=== PATIENT | male | born 1995 | race Caucasian/White ===

== ENCOUNTER 2018-01-07 22:46 | Emergency (ER) | payer OTHER, SELFPAY ==
[2018-01-07 22:56] VITALS: BP 143/66; PULSE 82; RESP 18; TEMP 36.6; O2SAT 97; BMI 24.0
--- NOTE | 2018-01-08 00:56 | ED_ITS ---
HPI - Back Pain/Injury General Chief Complaint: Back Pain/Injury Stated Complaint: Rt Shoulder and Back Pain Time Seen by Provider: 01/08/18 00:55 Source: patient Mode of arrival: ambulatory Limitations: no limitations History of Present Illness HPI Narrative: Patient is a 22-year-old male who presents with back pain. It has been ongoing for the last 3 days. He was lifting a race car onto a trailer and he pulled his back. He says it goes all across his back not down his legs. No numbness or tingling in legs or arms. He has been using some ibuprofen not much relief. He has not used anything today. MD Complaint: back pain and back injury Duration: constant Location: thoracic spine Related Data Previous Rx's Medication Instructions Recorded cyclobenzaprine 5 mg PO TID PRN #10 tab 01/08/18 Allergies Allergy/AdvReac Type Severity Reaction Status Date / Time No Known Drug Allergies Allergy Verified 01/08/18 01:15 Review of Systems Review of Systems All systems reviewed & are unremarkable except as noted in HPI and below Constitutional Denies chills, Denies fever(s), Denies lethargy and Denies weakness Cardiovascular Denies dyspnea and Denies dyspnea on exertion Respiratory Denies cough, Denies dyspnea, Denies dyspnea on exertion and Denies wheezing Musculoskeletal Reports as per HPI and Reports back pain Integumentary/Breasts Denies pruritus, Denies erythema, Denies rash and Denies wounds Neurologic Denies weakness Allergic/Immunologic Denies wheezing [facility] Social History Smoking Status: Current every day smoker Exam Initial Vital Signs Initial Vital Signs: Vital Signs Temperature 97.9 F 01/07/18 22:56 Pulse Rate 82 01/07/18 22:56 Respiratory Rate 18 01/07/18 22:56 Blood Pressure 143/66 H 01/07/18 22:56 Pulse Oximetry 97 01/07/18 22:56 Const General: cooperative, healthy appearing and comfortable Neck Neck: full ROM and supple Chest Chest: normal inspection of the chest Resp Effort & Inspection: normal respiratory effort Cardio Rate: regular rate Rhythm: regular rhythm Back/Spine/Pelvis Thoracic/Lumbar Spine: paraspinal tenderness (More on the left side than right side about T8-T10) Skin General: no rashes or lesions noted, No jaundice and No petechiae Neuro General: alert, oriented x3, gait normal and no focal motor deficits Speech: speech normal Extrem General: normal to inspection, full ROM and no clubbing, cyanosis or edema Course Orders Ordered: Discontinued Medications Cyclobenzaprine HCl (Flexeril 10 Mg Prepack) 1 bottle MISC SEEINSTR ONE Stop: 01/08/18 01:04 Last Admin: 01/08/18 01:15 Dose: 1 bottle Ketorolac Tromethamine (Toradol) 60 mg IM NOW ONE Stop: 01/08/18 01:04 Last Admin: 01/08/18 01:10 Dose: 60 mg Vital Signs - 8 hr 01/07/18 22:56 01/08/18 01:31 Temperature 97.9 F Pulse Rate 82 77 Respiratory Rate 18 18 Blood Pressure 143/66 H 129/77 H Pulse Oximetry 97 97 Discharge Plan Departure Patient Disposition: Home, Self-Care Clinical Impression: Strain of muscle and tendon of back wall of thorax, initial encounter Discharge Date/Time: 01/08/18 01:32 Interventions: ED Discharge Assessment Last Done: 01/08/18 01:31 Instructions: Thoracic Back Pain Activity Restrictions/Additional Instructions: *You have been diagnosed with thoracic back pain *What to do: Increase activity as tolerated, heating pad 30 min at a time, light massage, recommend no heavy lifting *Continue to take medications as directed -Motrin 800 mg 3 times a day with food if needed for mild-to- moderate pain -Flexeril every 8hr if needed for muscle spasm, this does cause drowsiness 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
[2018-01-08] MEDS: KETOROLAC 60 MG/2 ML VIAL IM (01:10)
[2018-01-08] MEDS: CYCLOBENZAPRINE 10 MG PREPACK 1 BOTTLE MISC (01:15)
[2018-01-08 01:31] VITALS: BP 129/77; PULSE 77; RESP 18; O2SAT 97
== END 2018-01-08 01:32 | disposition home or self-care (01) ==
PROVIDERS: Emergency Provider Emergency Medicine
DX: S29.012A Strain of muscle and tendon of back wall of thorax, initial encounter (principal); T73.3XXA Exhaustion due to excessive exertion, initial encounter
CPT/HCPCS: 96372; 99282; 99283; J1885

== ENCOUNTER 2018-08-05 01:34 | Emergency (ER) | payer OTHER, SELFPAY ==
[2018-08-05 01:48] VITALS: BP 148/82; PULSE 89; RESP 12; TEMP 37.2; O2SAT 99; BMI 31.6
--- NOTE | 2018-08-05 01:51 | ED.CHESTPAIN ---
HPI - Chest Pain General Chief Complaint: Chest Pain Stated Complaint: chest pain feels fluttering in chest Time Seen by Provider: 08/05/18 01:36 Source: patient and family Mode of arrival: ambulatory Limitations: no limitations History of Present Illness HPI narrative: 23-year-old otherwise healthy, fully immunized, smoking male presents with significant other and chief complaint of shortness of breath, chest pressure and fluttering in his chest that has worsened over the course of the night. [facility] when the symptoms started. He denies provocation, palliation or radiation. He states it has happened before but never to this extent. He denies any significant caffeine, nicotine or alcohol. He denies any change of medications, diet or sleep routine. He is currently having some chest discomfort MD complaint: chest pain Onset (ago): hour(s) Duration: improved Onset: during rest Pain location: left chest Quality: tightness and heaviness Relieving factors: nothing Exacerbating factors: nothing Context: recent illness Associated symptoms: palpitations Treatments prior to arrival chest pain: none Related Data Previous Rx's Medication Instructions Recorded cyclobenzaprine 5 mg PO TID PRN #10 tab 01/08/18 Allergies Allergy/AdvReac Type Severity Reaction Status Date / Time No Known Drug Allergies Allergy Verified 01/08/18 01:15 Review of Systems Review of Systems All systems reviewed & are unremarkable except as noted in HPI and below Constitutional Denies chills, Denies fever(s), Denies lethargy and Denies weakness Eyes Denies change in vision, Denies eye discharge, Denies irritation and Denies loss of vision ENT Ears, Nose, Mouth, and Throat: Denies change in voice, Denies neck pain and Denies sore throat Cardiovascular Reports chest pain, Reports chest pain at rest, Reports irregular heart rhythm, Denies lightheadedness, Reports palpitations, Reports dyspnea, Denies dyspnea on exertion and Denies orthopnea Respiratory Denies cough, Reports dyspnea, Denies dyspnea on exertion and Denies wheezing Gastrointestinal Gastrointestinal: Denies abdominal pain, Denies change in bowel habits, Denies diarrhea, Denies nausea and Denies vomiting Genitourinary Denies hematuria, Denies flank pain, Denies urinary incontinence and Denies urinary urgency Musculoskeletal Denies neck pain Integumentary/Breasts Denies pruritus, Denies erythema, Denies rash and Denies wounds Neurologic Denies confusion, Denies loss of vision and Denies weakness Psychiatric Denies anxiety, Denies confusion, Denies depression, Denies homicidal ideation and Denies suicidal ideation Endocrine Reports palpitations Hematologic/Lymphatic Denies easy bruising Allergic/Immunologic Denies wheezing [facility] Social History Smoking Status: Current every day smoker Exam Narrative Exam Narrative: 23M, healthy in appearance, resting comfortably in no obvious or significant distress. Initial Vital Signs Initial Vital Signs: Vital Signs Temperature 98.9 F 08/05/18 01:48 Pulse Rate 89 08/05/18 01:48 Respiratory Rate 12 08/05/18 01:48 Blood Pressure 148/82 H 08/05/18 01:48 Pulse Oximetry 99 08/05/18 01:48 Const General: cooperative, well developed and anxious Nutritional Appearance: well nourished Orientation: alert, awake, oriented x3 and not confused HENMT Head: normal to inspection Nose: external nose normal Face and sinus: normal facial exam Mouth: oral mucosae normal Eyes General: appearance normal, both eyes and all related structures Eyelids: eyelids normal Conjunctivae: conjunctivae normal Sclera: sclerae normal Pupils: PERRL EOM: EOM intact bilaterally Neck Neck: normal visual inspection, trachea midline, No lymphadenopathy, No midline deformity and No JVD Lymphatic: No lymphedema Chest Chest: normal inspection of the chest Resp Effort & Inspection: normal respiratory effort, able to speak in complete sentences, no respiratory distress and no use of accessory muscles Auscultation: clear to auscultation bilaterally, no rales, no rhonchi and no wheezes GI Inspection: non-distended Palpation: soft, no hepatosplenomegaly, No guarding, No pulsatile mass and No tender Auscultation: normal bowel sounds Back/Spine/Pelvis Back: No CVA tenderness Cervical Spine: cervical ROM normal and No pain with cervical ROM Thoracic/Lumbar Spine: thoracic and lumbar spine normal to inspection Skin General: no rashes or lesions noted, No jaundice and No petechiae Neuro General: alert, oriented x3, gait normal and no focal motor deficits Speech: speech normal Extrem General: full ROM, no clubbing, cyanosis or edema, no pedal edema and no calf tenderness Psych Appearance: well kempt Mental Status: mental status grossly normal Affect: anxious affect Attitude: cooperative Thought Content: normal and suicidality Judgment: judgment good Course Orders Ordered: ED Orders 08/05/18 01:36 EKG-12 Lead Stat 08/05/18 01:57 XR chest 2V Stat 08/05/18 02:02 Complete Blood Count AUTO DIFF Stat Comprehensive Metabolic Panel Stat Troponin I Stat 08/05/18 02:50 Urine Drug Screen, Rapid Stat Vital Signs - 8 hr 08/05/18 01:48 08/05/18 02:56 08/05/18 04:05 Temperature 98.9 F Pulse Rate 89 74 89 Respiratory Rate 12 20 20 Blood Pressure 148/82 H Blood Pressure [Left Arm] 137/64 152/55 H Pulse Oximetry 99 98 92 MDM - Chest Pain Lab Data Result diagrams: 08/05/18 02:02 08/05/18 02:02 Lab Results 08/05/18 08/05/18 08/05/18 Range/Units 02:02 02:02 02:50 WBC 10.2 (4.5-11.0) X10^3/uL RBC 5.02 (4.5-5.9) X10^6/uL Hgb 15.0 (13.5-17.5) g/dL Hct 42.7 (41-53) % MCV 85.2 (80-100) fL MCH 29.9 (26-34) PG MCHC 35.1 (30-36) % RDW 13.1 (11.6-14.8) % Plt Count 224 (150-400) X10^3/uL Neut % (Auto) 59.8 (50-75) % Lymph % (Auto) 30.6 (25-40) % [place] % (Auto) 7.5 (3-14) % Eos % (Auto) 1.6 L (2-4) % Baso % (Auto) 0.5 (0-2) % Neut # (Auto) 6100 (9607-7877) /uL Sodium 142 (137-145) mmol/L Potassium 3.7 (3.4-5.1) mmol/L Chloride 103 (98-107) mmol/L Carbon Dioxide 27 (22-32) mmol/L BUN 13 (9-20) mg/dL Creatinine 1.00 (0.66-1.25) mg/dL Estimated GFR > 60.0 (>60) mL/min BUN/Creatinine Ratio 13.0 (6-22) Glucose 103 H (70-100) mg/dL Calcium 9.5 (8.4-10.2) mg/dL Total Bilirubin 1.0 (0.2-1.3) mg/dL AST 35 (17-59) IU/L ALT 44 (21-72) IU/L Alkaline Phosphatase 98 (38-126) U/L Troponin I < 0.012 (0.01-0.034) ng/mL Total Protein 7.8 (6.3-8.2) g/dL Albumin 4.7 (3.5-5.0) g/dL Globulin 3.1 (1.7-4.1) g/dL Albumin/Globulin Ratio 1.5 (1.0-2.8) Urine Opiates Screen Negative (Negative) Ur Oxycodone Screen Negative (Negative) Urine Methadone Screen Negative (Negative) Ur Barbiturates Screen Negative (Negative) U Tricyclic Antidepress Negative (Negative) Ur Phencyclidine Scrn Negative (Negative) Ur Amphetamines Screen Negative (Negative) U Methamphetamines Scrn Negative (Negative) Ur MDMA Scrn (Ecstasy) Negative (Negative) U Benzodiazepines Scrn Negative (Negative) Urine Cocaine Screen Negative (Negative) U Marijuana (THC) Screen Negative (Negative) Discharge Plan Departure Patient Disposition: Home Clinical Impression: Atypical chest pain Discharge Date/Time: 08/05/18 04:09 Interventions: ED Discharge Assessment Last Done: 08/05/18 04:09 Instructions: DI for Atypical Chest Pain Activity Restrictions/Additional Instructions: *You have been diagnosed with [ atypical chest pain ] *What to do: *Take medications as directed *Follow up with your primary care provider in 2-3 days, call for an appointment. Let them know you were seen in the Emergency Department and that we ask that you be seen in follow up *Return to ER if you should have any new, worsening or concerning symptoms Prescriptions: No Action cyclobenzaprine 5 mg tablet 5 mg PO TID PRN (Reason: muscle spasm) Qty: 10 RF: 0
--- NOTE | 2018-08-05 01:57 | DI.RAD.S_ITS ---
PROCEDURE: XR CHEST 2V INDICATIONS: Shortness of breath, chest pain TECHNIQUE: 2 views of the chest were acquired. COMPARISON: None. FINDINGS: Surgical changes and devices: None. Lungs and pleura: No pleural effusions or pneumothorax. Lungs are clear. Mediastinum: Mediastinal contours are normal. Heart size is normal. Bones and chest wall: No suspicious bony abnormalities. Soft tissues appear unremarkable. IMPRESSION: No acute cardiopulmonary disease process. Dictated by: Melissa Colvin MD, PhD on 08/05/2018 at 9:06 Approved by: Melissa Colvin MD, PhD on 08/05/2018 at 9:06
[2018-08-05 02:25] LABS: Alanine Aminotransferase 44 IU/L (21-72); Albumin 4.7 g/dL (3.5-5.0); Albumin Globulin Ratio 1.5 (1.0-2.8); Alkaline Phosphatase 98 U/L (38-126); Aspartate Aminotransferase 35 IU/L (17-59); Blood Urea Nitrogen 13 mg/dL (9-20); Calcium 9.5 mg/dL (8.4-10.2); Carbon Dioxide 27 mmol/L (22-32); Chloride 103 mmol/L (98-107); Estimated Glomerular Filt Rate > 60.0 mL/min (>60); Globulin 3.1 g/dL (1.7-4.1); Glucose 103 mg/dL (70-100); HEMOLYSIS < 15 (0-50); Potassium 3.7 mmol/L (3.4-5.1); Sodium 142 mmol/L (137-145); Total Protein 7.8 g/dL (6.3-8.2)
[2018-08-05 02:27] LABS: Add Manual Diff / Slide Review NO; Basophils Percent Auto 0.5 % (0-2); Eosinophils Percent Auto 1.6 % (2-4); Hematocrit 42.7 % (41-53); Lymphocytes Percent Auto 30.6 % (25-40); Mean Corpuscular HGB Conc 35.1 % (30-36); Mean Corpuscular Hemoglobin 29.9 PG (26-34); Mean Corpuscular Volume 85.2 fL (80-100); Monocytes Percent Auto 7.5 % (3-14); Neutrophils Absolute Auto 6100 /uL (1500-7000); Neutrophils Percent Auto 59.8 % (50-75); Platelet Count 224 X10^3/uL (150-400); Red Blood Cell Count 5.02 X10^6/uL (4.5-5.9); Red Cell Distribution Width 13.1 % (11.6-14.8); White Blood Cell Count 10.2 X10^3/uL (4.5-11.0)
[2018-08-05 02:39] LABS: Troponin I < 0.012 ng/mL (0.01-0.034)
[2018-08-05 02:56] VITALS: BP 137/64; PULSE 74; RESP 20; O2SAT 98
[2018-08-05 03:02] LABS: Urine Amphetamines Negative (Negative); Urine Barbiturates Negative (Negative); Urine Benzodiazepines Negative (Negative); Urine Cocaine Negative (Negative); Urine MDMA Negative (Negative); Urine Methadone Negative (Negative); Urine Methamphetamines Negative (Negative); Urine Morphine/Opi cutoff 2000 Negative (Negative); Urine Phencyclidine Negative (Negative); Urine Tetrahydrocannabinol Negative (Negative)
[2018-08-05 03:03] LABS: Urine Oxycodone Negative (Negative); Urine Tricyclic Antidepressant Negative (Negative)
[2018-08-05 04:05] VITALS: BP 152/55; PULSE 89; RESP 20; O2SAT 92
== END 2018-08-05 04:09 | disposition home or self-care (01) ==
PROVIDERS: Emergency Provider Emergency Medicine
DX: R07.89 Other chest pain (principal)
CPT/HCPCS: 36415; 71046; 80053; 80305; 84484; 85025; 93005; 99282; 99285

== ENCOUNTER 2019-01-25 20:15 | Emergency (ER) | payer OTHER, SELFPAY ==
[2019-01-25 20:15] VITALS: BP 137/79; PULSE 82; RESP 16; TEMP 36.4; O2SAT 97; BMI 33.0
--- NOTE | 2019-01-25 20:33 | ED_ITS ---
HPI - Dental/Oral General Chief complaint: Dental/Oral Stated complaint: TOOTH PAIN Time Seen by Provider: 01/25/19 20:20 Source: patient Mode of arrival: ambulatory Limitations: no limitations History of Present Illness HPI Narrative: 23-year-old male smoker with history of dental problems presents with ongoing right lower molar pain over the past few weeks but worsening the past few days. He denies any injury nor fever or chills. He denies any discharge, facial swelling or fever. Denies any swelling along the gumline. MD Complaint: tooth pain 1. Onset (ago): week(s) Duration: constant Severity: moderate Relieving factors: nothing Exacerbating factors: chewing, cold and heat Context: history of dental caries and poor dental care Associated symptoms: fever Treatment prior to arrival: none Related Data Previous Rx's Medication Instructions Recorded cyclobenzaprine 5 mg PO TID PRN #10 tab 01/08/18 Allergies Allergy/AdvReac Type Severity Reaction Status Date / Time No Known Drug Allergies Allergy Verified 01/25/19 20:23 Review of Systems ENT Ears, Nose, Mouth, and Throat: Reports dental pain [facility] Social History Smoking Status: Current every day smoker Exam Narrative Exam Narrative: GEN: AOx3 and in mild distress EYES: Pupils are equal, round, and reactive to light and accommodation. Extraoccular muscles are intact bilaterally. There is no subconjunctival hemorrhage or exudate. ENT: no facial swelling, redness. Poor dentition throughout. Fracture of #32. No gum swelling or tenderness CHEST: Lungs are clear to auscultation bilaterally and free of wheezes, rales, or rhonchi. Heart rate is regular rhythm, there are no murmurs, clicks, rubs, or gallops. There is no chest wall tenderness. ABD: Abdomen is soft and nontender. There is no guarding or rebound. Bowel sounds are normal in all 4 quadrants. There is no mass or organomegaly. EXT: Full painless ROM of all extremities with no loss of sensation or strength. SKIN: Warm, pink, and dry. No erythema or rash Initial Vital Signs Initial Vital Signs: Vital Signs Temperature 97.6 F 01/25/19 20:15 Pulse Rate 82 01/25/19 20:15 Respiratory Rate 16 01/25/19 20:15 Blood Pressure 137/79 01/25/19 20:15 Pulse Oximetry 97 01/25/19 20:15 Procedures Nerve Block Nerve Block 1: Time out performed: Yes Local Anesthetic: lidocaine 1% and bupivacaine 0.5% Amount of anesthesia used (mL): 3 Side: right Intraoral Nerve Block: inferior alveolar Procedure Successful: Yes Patient Tolerated Procedure: Well Complications: none Course Vital Signs - 8 hr 01/25/19 20:15 Temperature 97.6 F Pulse Rate 82 Respiratory Rate 16 Blood Pressure 137/79 Pulse Oximetry 97 Discharge Plan Departure Patient Disposition: Home Clinical Impression: Toothache Discharge Date/Time: 01/25/19 20:36 Interventions: ED Discharge Assessment Last Done: 01/25/19 20:36 Instructions: DI for Dental Pain Activity Restrictions/Additional Instructions: *You have been diagnosed with [acute on chronic dental pain] *What to do: *Take medications as directed: Tylenol and/or Motrin for pain *Follow up with your dental provider in 2-3 days, call for an appointment. Let them know you were seen in the Emergency Department and that we ask that you be seen in follow up *Return to ER if you should have any new, worsening or concerning symptoms, such as [fever over 101 F, facial swelling, difficulty swallowing or other bothersome symptoms] Prescriptions: No Action cyclobenzaprine 5 mg tablet 5 mg PO TID PRN (Reason: muscle spasm) Qty: 10 RF: 0
== END 2019-01-25 20:36 | disposition home or self-care (01) ==
PROVIDERS: Emergency Provider Emergency Medicine
DX: K08.89 Other specified disorders of teeth and supporting structures (principal)
CPT/HCPCS: 64402; 99282; 99283

== ENCOUNTER 2023-10-10 22:41 | Emergency (ER) | payer OTHER, MEDICAID, SELFPAY ==
[2023-10-10 22:55] VITALS: BP 137/74; PULSE 120; RESP 26; O2SAT 97; BMI 33.3
--- NOTE | 2023-10-10 23:14 | DI.RAD.S_ITS ---
PROCEDURE: XR CHEST 1V INDICATIONS: chest pain TECHNIQUE: One view of the chest was acquired. COMPARISON: [facility], CR, XR CHEST 2V, 08/05/2018, 2:42. FINDINGS: Surgical changes and devices: None. Lungs and pleura: Lungs are clear. No pleural effusions or pneumothorax. Mediastinum: Mediastinal contours appear normal. Heart size is normal. Bones and chest wall: No suspicious bony lesions. Overlying soft tissues appear unremarkable. IMPRESSION: No acute cardiopulmonary pathology. Dictated by: Fred Cherry M.D. on 10/10/2023 at 23:30 Approved by: Fred Cherry M.D. on 10/10/2023 at 23:31
[2023-10-10] MEDS: ASPIRIN 81 MG CHEW TAB 324 MG PO (23:17)
[2023-10-10 23:23] LABS: Add Manual Diff / Slide Review NO; Basophils Absolute Auto 100 /uL (0-100); Basophils Percent Auto 0.5 % (0-2); Eosinophils Absolute Auto 100 /uL (0-450); Eosinophils Percent Auto 1.4 % (2-4); Hematocrit 43.9 % (41-53); Hemoglobin 15.2 g/dL (13.5-17.5); Lymphocytes Absolute Auto 2100 /uL (1100-4500); Lymphocytes Percent Auto 19.3 % (25-40); Mean Corpuscular HGB Conc 34.5 % (30-36); Mean Corpuscular Hemoglobin 29.9 PG (26-34); Mean Corpuscular Volume 86.6 fL (80-100); Monocytes Absolute Auto 800 /uL (0-900); Monocytes Percent Auto 7.2 % (3-14); Neutrophils Absolute Auto 7600 /uL (1500-7000); Neutrophils Percent Auto 71.6 % (50-75); Platelet Count 257 X10^3/uL (150-400); Red Blood Cell Count 5.07 X10^6/uL (4.5-5.9); Red Cell Distribution Width 14.1 % (11.6-14.8); White Blood Cell Count 10.7 X10^3/uL (4.5-11.0)
[2023-10-10 23:27] LABS: INR 0.9 (0.9-1.3); Prothrombin Time 10.6 SECONDS (9.4-12.5)
[2023-10-10 23:30] LABS: PTT Partial Thromboplastin Tim 37 SECONDS (25.1-36.5)
[2023-10-10 23:32] LABS: Alanine Aminotransferase 63 IU/L (<50); Albumin 4.3 g/dL (3.5-5.0); Albumin Globulin Ratio 1.4 (1.0-2.8); Alkaline Phosphatase 103 U/L (38-126); Aspartate Aminotransferase 44 IU/L (17-59); BUN Creatinine Ratio 16.7 (6-22); Bilirubin Total 0.8 mg/dL (0.2-1.3); Blood Urea Nitrogen 18 mg/dL (9-20); Calcium 9.4 mg/dL (8.4-10.2); Carbon Dioxide 32 mmol/L (22-32); Chloride 104 mmol/L (98-107); Creatine Kinase 572 U/L (55-170); Estimated Glomerular Filt Rate > 60 mL/min (>60); Globulin 3.1 g/dL (1.7-4.1); Glucose 112 mg/dL (70-100); HEMOLYSIS 16 (0-50); Lipase 97 U/L (23-300); Magnesium 2.2 mg/dL (1.6-2.3); Potassium 3.9 mmol/L (3.4-5.1); Sodium 142 mmol/L (137-145); Total Protein 7.4 g/dL (6.3-8.2)
[2023-10-10 23:43] LABS: Troponin I < 0.012 ng/mL (0.01-0.034)
--- NOTE | 2023-10-11 00:35 | ED.CHESTPAIN ---
HPI - Chest Pain General Chief Complaint: Chest Pain Stated Complaint: CHEST PAIN Time Seen by Provider: 10/10/23 23:26 Source: patient Mode of arrival: Ambulatory Limitations: no limitations History of Present Illness HPI narrative: 28-year-old male with no reported past medical history presents for 3 days of intermittent substernal chest pain that does not radiate. Patient can not identify what makes the pain come or go or what makes it better or worse. States that he had an episode earlier this week of chest pain after spitting the entirety working. When he came inside he felt lightheaded and nearly passed out, but this resolved in his own and he did not seek medical care at that time. Patient does smoke cigarettes. Endorses recreational use of amphetamines Related Data Previous Rx's Medication Instructions Recorded cyclobenzaprine 5 mg tablet 5 mg PO TID PRN muscle spasm #10 01/08/18 tabs Allergies Allergy/AdvReac Type Severity Reaction Status Date / Time No Known Drug Allergies Allergy Verified 01/25/19 20:23 Review of Systems Review of Systems Narrative: Negative except as noted above Patient History Social History Smoking Status: Current every day smoker Smoking Status: Current every day smoker alcohol intake frequency: a few times a month Substance Use Type: marijuana Exam Initial Vital Signs Initial Vital Signs: Vital Signs Pulse Rate 120 H 10/10/23 22:55 Respiratory Rate 26 H 10/10/23 22:55 Blood Pressure 137/74 10/10/23 22:55 Pulse Oximetry 97 10/10/23 22:55 Oxygen Delivery Method Room Air 10/10/23 22:55 Const: Awake, alert, no acute distress, nontoxic appearing Cardiac: tachycardia, regular rhythm RESP: unlabored, clear bilaterally, no wheezing GI: Atraumatic, soft, nontender, nondistended, no rebound, no guarding MSK: Atraumatic, full range of motion, pulses equal Skin: Warm, Dry, intact, no rashes Neuro: AO x3, CN II-XII grossly intact, moves all extremities Course Orders Ordered: Discontinued Medications Aspirin (Aspirin 81 Mg Chew Tab) 324 mg PO NOW ONE Stop: 10/10/23 23:15 Last Admin: 10/10/23 23:17 Dose: 324 mg Documented By: JOSÉ LUIS Sodium Chloride (Normal Saline 0.9%) 1,000 mls @ 1,000 mls/hr IV BOLUS ONE Stop: 10/11/23 01:32 Last Admin: 10/11/23 00:43 Dose: 1,000 mls/hr Documented By: JOSÉ LUIS Ketorolac Tromethamine (Ketorolac 30 Mg/Ml Vial) 15 mg IV NOW ONE Stop: 10/11/23 00:34 Last Admin: 10/11/23 00:43 Dose: 15 mg Documented By: JOSÉ LUIS Vital Signs Vital signs: Vital Signs - 8 hr 10/10/23 22:55 Pulse Rate 120 H Respiratory Rate 26 H Blood Pressure 137/74 Pulse Oximetry 97 Oxygen Delivery Method Room Air MDM - Chest Pain Lab Data 10/10/23 23:13 10/10/23 23:13 Labs: Lab Results 10/10/23 Range/Units 23:13 WBC 10.7 (4.5-11.0) X10^3/uL RBC 5.07 (4.5-5.9) X10^6/uL Hgb 15.2 (13.5-17.5) g/dL Hct 43.9 (41-53) % MCV 86.6 (80-100) fL MCH 29.9 (26-34) PG MCHC 34.5 (30-36) % RDW 14.1 (11.6-14.8) % Plt Count 257 (150-400) X10^3/uL Neut % (Auto) 71.6 (50-75) % Lymph % (Auto) 19.3 L (25-40) % [place] % (Auto) 7.2 (3-14) % Eos % (Auto) 1.4 L (2-4) % Baso % (Auto) 0.5 (0-2) % Neut # (Auto) 7600 H (2552-9989) /uL Lymph # (Auto) 2100 (8350-4341) /uL [place] # (Auto) 800 (0-900) /uL Eos # (Auto) 100 (0-450) /uL Baso # (Auto) 100 (0-100) /uL PT 10.6 (9.4-12.5) SECONDS INR 0.9 (0.9-1.3) APTT 37 H (25.1-36.5) SECONDS Sodium 142 (137-145) mmol/L Potassium 3.9 (3.4-5.1) mmol/L Chloride 104 (98-107) mmol/L Carbon Dioxide 32 (22-32) mmol/L BUN 18 (9-20) mg/dL Creatinine 1.08 (0.66-1.25) mg/dL Estimated GFR > 60 (>60) mL/min BUN/Creatinine Ratio 16.7 (6-22) Glucose 112 H (70-100) mg/dL Calcium 9.4 (8.4-10.2) mg/dL Magnesium 2.2 (1.6-2.3) mg/dL Total Bilirubin 0.8 (0.2-1.3) mg/dL AST 44 (17-59) IU/L ALT 63 H (<50) IU/L Alkaline Phosphatase 103 (38-126) U/L Total Creatine Kinase 572 H (55-170) U/L Troponin I < 0.012 (0.01-0.034) ng/mL Total Protein 7.4 (6.3-8.2) g/dL Albumin 4.3 (3.5-5.0) g/dL Globulin 3.1 (1.7-4.1) g/dL Albumin/Globulin Ratio 1.4 (1.0-2.8) Lipase 97 (23-300) U/L MDM Narrative Medical decision making narrative: Several days of central chest pain. EKG sinus tachycardia without ischemic findings. Heart score 2 based on weight and tobacco use, however he has no known family history of heart disease and no other known risk factors. Troponin undetectable. Chest x-ray unremarkable. Patient advised to stop using amphetamines as this can lead to worsening chest pain. PCP follow up advised Discharge Plan Departure Patient Disposition: Home Clinical Impression: Chest pain Instructions: DI for Chest Pain Activity Restrictions/Additional Instructions: Your EKG, laboratory work, and chest x-ray were normal today. I do not know the cause of your chest pain but it was not appear that you were having a heart attack today. I do recommend that you decrease your amphetamine intake, it is preferable that you stop this entirely as this may lead to worsening chest pains. In the meantime I recommend taking Tylenol and Motrin as needed for pain or discomfort and to rest for several days to see if this helps alleviate your chest pain. Prescriptions: No Action cyclobenzaprine 5 mg tablet 5 mg PO TID PRN (Reason: muscle spasm) Qty: 10 0RF Stand Alone Forms: Patient Portal/API, Work Release Note
[2023-10-11] MEDS: SODIUM CHLORIDE 0.9% 1,000 ML 1000 ML IV (00:43)
[2023-10-11] MEDS: KETOROLAC 30 MG/ML VIAL 15 MG IV (00:43)
[2023-10-11 01:15] VITALS: PULSE 96
== END 2023-10-11 01:16 | disposition home or self-care (01) ==
PROVIDERS: Emergency Provider Emergency Medicine
DX: R07.9 Chest pain, unspecified (principal)
CPT/HCPCS: 71045; 80053; 82550; 83690; 83735; 84484; 85025; 85610; 85730; 93005; 93010; 96374; 99284; J1885

== ENCOUNTER 2025-01-21 23:35 | Emergency (ER) | payer SELFPAY ==
--- NOTE | 2025-01-21 23:44 | DI.RAD.S_ITS ---
PROCEDURE: XR ANKLE RT MIN 3V INDICATIONS: rolled right ankle and felt a pop TECHNIQUE: 3 views of the ankle were acquired. COMPARISON: None. FINDINGS: Bones: No fractures or dislocations. Ankle mortise is normally aligned. No suspicious bony lesions. Soft tissues: No tibiotalar joint effusion. Achilles tendon appears normal. IMPRESSION: No acute bony abnormality or significant effusion. If there are persistent symptoms or clinical suspicion for pathology, then repeat radiographs or advanced imaging (CT or MRI) may be considered for further evaluation. Dictated by: Pavel Jasso M.D. on 01/22/2025 at 0:39 Approved by: Pavel Jasso M.D. on 01/22/2025 at 0:40
[2025-01-21 23:45] VITALS: BP 177/77; PULSE 129; RESP 18; TEMP 36.6; O2SAT 98; BMI 34.9
--- NOTE | 2025-01-21 23:50 | ED.LOWEXIN ---
HPI - Extremity Injury (Lower) General Chief Complaint: Extremity Injury, Lower Stated Complaint: R Ankle Laceration Time Seen by Provider: 01/21/25 23:49 History of Present Illness HPI Narrative: Patient is 29-year-old male with no significant past medical history presents to the emergency department from home for evaluation of right ankle pain, he states that a few hours prior to arrival he was stepping up a stair and rolled his ankle. He states he had immediate pain was able to take a few steps but states that pain persisted and therefore placed himself in a short posterior splint. Patient denies any numbness weakness tingling to the lower extremity, denies any other injuries at this time. Related Data Previous Rx's ?Medication ?Instructions ?Recorded cyclobenzaprine 5 mg tablet 5 mg PO TID PRN muscle spasm #10 01/08/18 tabs Allergies Allergy/AdvReac Type Severity Reaction Status Date / Time No Known Drug Allergies Allergy Verified 01/21/25 23:45 Review of Systems Review of Systems Narrative: General: Denies fever, chills, weight loss HEENT: Denies headache, eye drainage, eye irritation, head trauma, sore throat, voice change Cardiovascular: Denies any chest pain, palpitations, tachycardia Respiratory: Denies any shortness of breath, cough, wheeze, stridor GI/: Denies any abdominal pain, nausea, vomiting, diarrhea, bright red blood per rectum, melanotic stools, urinary frequency, urinary retention, dysuria, hematuria MSK: Positive right ankle pain Skin: Denies any rashes, lesions, discoloration Neuro: Denies any headache, lightheadedness, dizziness, fainting, weakness Psych: Denies SI/HI Patient History Social History Smoking Status: Current every day smoker alcohol intake frequency: a few times a month Exam Narrative Exam Narrative: General: Cooperative, well-developed, not in acute distress HEENT: Normocephalic, atraumatic, PERRLA, normal sclera, eyelids normal Neck: Active full range of motion, atraumatic Chest: Normal to inspection, negative crepitus, no overlying erythema ecchymosis Respiratory: Normal respiratory effort, not in acute respiratory distress, clear to auscultation bilaterally negative cough, wheeze, tachypnea, rhonchi, rales Cardiology: Regular rate rhythm negative gallop, murmur, rubs GI/: No tenderness to palpation, soft, non rigid, normal to inspection, exam deferred MSK: Full active range of motion in all 4 extremities, atraumatic, patient neurovascularly intact right lower extremity, there is tenderness to palpation of the medial malleolus otherwise mild decreased active passive range of motion of the ankle secondary to pain but no palpable or gross deformities noted on exam Skin: No rashes or lesions noted Neuro: Alert awake oriented x3, moves all 4 extremities spontaneously, cranial nerves intact, able to answer all questions appropriately follows commands appropriately Psych: Cooperative, negative suicidal or homicidal ideations Initial Vital Signs Initial Vital Signs: Vital Signs Temperature 97.9 F 01/21/25 23:45 Pulse Rate 129 H 01/21/25 23:45 Respiratory Rate 18 01/21/25 23:45 Blood Pressure 177/77 H 01/21/25 23:45 Pulse Oximetry 98 01/21/25 23:45 Oxygen Delivery Method Room Air 01/21/25 23:45 Course Orders Ordered: ED Orders 01/21/25 23:44 XR ankle RT min 3V Stat Vital Signs Vital signs: Vital Signs - 8 hr 01/21/25 23:45 Temperature 97.9 F Pulse Rate 129 H Respiratory Rate 18 Blood Pressure 177/77 H Pulse Oximetry 98 Oxygen Delivery Method Room Air MDM - Extremity Injury (Lower) Differential Diagnosis Differential diagnosis: Likely ankle sprain and strain and other (Ankle fracture) Imaging Data Extremity x-ray #1: Radiologist's Impression: [address] [address] XRay Report Signed Patient: Santino James MR#: [id number] : 1995 Acct:[id number] Age/Sex: 29 / M Date of Service: 01/21/25 Loc: ED Accession Number: [id number] Procedure: XR ankle RT min 3V Ordering Provider: Flaco Lai D.O. PROCEDURE: XR ANKLE RT MIN 3V INDICATIONS: rolled right ankle and felt a pop TECHNIQUE: 3 views of the ankle were acquired. COMPARISON: None. FINDINGS: Bones: No fractures or dislocations. Ankle mortise is normally aligned. No suspicious bony lesions. Soft tissues: No tibiotalar joint effusion. Achilles tendon appears normal. IMPRESSION: No acute bony abnormality or significant effusion. If there are persistent symptoms or clinical suspicion for pathology, then repeat radiographs or advanced imaging (CT or MRI) may be considered for further evaluation. MDM Narrative Medical decision making narrative: 29-year- old male without any significant past medical history presenting right ankle pain he states that few hours prior to arrival he was going up a stair and rolled his ankle, had pain immediately after states he was able to walk for a few steps but had persistent pain therefore placed himself in a short posterior splint. He denies any other injuries, on exam he is neurovascularly intact he has tenderness to palpation of the medial malleolus no gross deformity noted x-ray performed here in the emergency department x-ray did not show any acute fracture or therefore we will place patient in a brace instructed to follow up with primary care and orthopedic surgery in outpatient setting patient verbalized understanding of this and agrees to being discharged home with outpatient follow up Discharge Plan Departure Patient Disposition: Home Clinical Impression: Ankle sprain and strain Instructions: How to Use Crutches, DI for Ankle Sprain Activity Restrictions/Additional Instructions: Please follow up with primary care and orthopedic surgery as needed Please read the discharge instructions sheet carefully and bring all papers to all doctor follow-up visits, as it may contain information that your doctor may want to see. Disease processes change and evolve, if your symptoms worsen or if you develop any new symptoms that are concerning to you please return for evaluation. Your evaluation today does not show any evidence of any life-threatening/serious illnesses requiring admission to the hospital or surgery. Please follow-up with your doctor for re-evaluation in approximately 1 day. Seek immediate medical attention for any worrisome symptoms. *If you do not have a primary care provider please contact the [facility] Resource line at [phone]. They will ask some questions about your medical history and help get you set up with a doctor in the community. Prescriptions: No Action cyclobenzaprine 5 mg tablet 5 mg PO TID PRN (Reason: muscle spasm) Qty: 10 0RF Stand Alone Forms: Patient Portal/API
[2025-01-22] MEDS: OXYCODONE/APAP 5/325 PREPACK 1 BOTTLE MISC (01:17)
== END 2025-01-22 01:30 | disposition home or self-care (01) ==
PROVIDERS: Emergency Provider Student in an Organized Health Care Education/Training Program
DX: S93.401A Sprain of unspecified ligament of right ankle, initial encounter (principal); X50.1XXA Overexertion from prolonged static or awkward postures, initial encounter
CPT/HCPCS: 29515; 73610; 99281; 99283